=== PATIENT | male | born 1990 ===

== ENCOUNTER 2023-06-01 04:18 | Day surgery (SDC) | payer OTHER ==
[2023-05-31 09:28] VITALS: BMI 24.7
[2023-06-01] MEDS ORDERED: BUPIVACAINE HCL/PF 0.75% 10 ML VIAL ONE (07:25)
[2023-06-01] MEDS ORDERED: LIDOCAINE HCL/PF 1% SDV 5ML VIAL ONE (07:25)
[2023-06-01] MEDS ORDERED: ACETAMINOPHEN 500 MG TABLET (FP) PO PRN (11:10)
[2023-06-01 13:23] VITALS: RESP 20
[2023-06-01] MEDS ORDERED: BUPIVACAINE HCL/PF 0.75% 10 ML VIAL CAUD ONE (13:56)
[2023-06-01] MEDS ORDERED: LIDOCAINE 1% P/F 10 MG/ML VIAL INF ONE (13:57)
[2023-06-01 19:11] VITALS: BP 129/66; PULSE 55; TEMP 98.9
== END 2023-06-01 14:40 | disposition home or self-care (01) ==
LOC: JASU-SURG 04:18
PROVIDERS: ATTEND Pain Medicine Pain Medicine
PROC: 3E0T33Z Introduction of Anti-inflammatory into Peripheral Nerves and Plexi, Percutaneous Approach (ICD-10-PCS; 2023-06-01)
PROC: 3E0T3BZ Introduction of Anesthetic Agent into Peripheral Nerves and Plexi, Percutaneous Approach (ICD-10-PCS; principal; 2023-06-01 15:00)
DX: M47.816 Spondylosis without myelopathy or radiculopathy, lumbar region (principal)
CPT/HCPCS: 76000-TC-FY

== ENCOUNTER 2023-07-03 04:37 | Day surgery (SDC) | payer OTHER ==
[2023-06-29 15:57] VITALS: BMI 24.7
[~2023-07-03 04:37] MED LIST: ACETAMINOPHEN 500 MG TABLET (FP) PO ONE
[2023-07-03] MEDS ORDERED: LIDOCAINE HCL/PF 1% SDV 5ML VIAL ONE (07:21)
[2023-07-03] MEDS ORDERED: BUPIVACAINE HCL/PF 0.75% 10 ML VIAL ONE (07:21)
[2023-07-03 10:46] VITALS: RESP 18
[2023-07-03] MEDS ORDERED: LIDOCAINE HCL 1% PRESERVATIVE FREE - 30ML VIAL IJ ONE (11:06)
[2023-07-03] MEDS ORDERED: BUPIVACAINE HCL/PF 0.75% 10 ML VIAL NR ONE ×2 (11:06→11:10)
[2023-07-03 11:33] VITALS: TEMP 97.5
[2023-07-03 11:55] VITALS: BP 125/84; PULSE 67
== END 2023-07-03 11:53 | disposition home or self-care (01) ==
LOC: JASU-SURG 04:37
PROVIDERS: ATTEND Pain Medicine Pain Medicine
PROC: 3E0T33Z Introduction of Anti-inflammatory into Peripheral Nerves and Plexi, Percutaneous Approach (ICD-10-PCS; 2023-07-03)
PROC: 3E0T3BZ Introduction of Anesthetic Agent into Peripheral Nerves and Plexi, Percutaneous Approach (ICD-10-PCS; principal; 2023-07-03 12:15)
DX: M47.816 Spondylosis without myelopathy or radiculopathy, lumbar region (principal)
CPT/HCPCS: 76000-TC-FY

== ENCOUNTER 2023-08-03 04:19 | Day surgery (SDC) | payer OTHER ==
[2023-08-01 13:31] VITALS: BMI 24.7
[2023-08-03] MEDS ORDERED: LIDOCAINE HCL/PF 1% SDV 5ML VIAL ONE (07:33)
[2023-08-03] MEDS ORDERED: LIDOCAINE HCL 1% PRESERVATIVE FREE - 30ML VIAL INF ONE (10:52)
[2023-08-03 11:07] VITALS: RESP 18; TEMP 98.3
[2023-08-03 12:35] VITALS: BP 133/93; PULSE 51
[2023-08-03] MEDS ORDERED: ACETAMINOPHEN 500 MG TABLET (FP) PO PRN (14:44)
== END 2023-08-03 12:44 | disposition home or self-care (01) ==
LOC: JASU-SURG 04:19
PROVIDERS: ATTEND Pain Medicine Pain Medicine
PROC: 00HV3MZ Insertion of Neurostimulator Lead into Spinal Cord, Percutaneous Approach (ICD-10-PCS; principal; 2023-08-03 11:45)
DX: G89.4 Chronic pain syndrome (principal)
CPT/HCPCS: 64555; C1778